=== PATIENT | female | born 1960 | race Caucasian/White ===

== ENCOUNTER 2016-06-01 08:16 | Day surgery (SDC) | payer BC ==
--- NOTE | ~2016-06-01 | EGD ---
EGD REPORT [facility] [address] [address] NAME: VERENICE FARFAN : 56 STATUS : REG [facility]#: [id number] AGE: 55 ADM/REG DATE : 06/01/16 MR#: [id number] REPORT SERV DATE: 06/01/16 DICTATED BY: SARKIS SHEPPARD DATE: 06/01/16 REPORT STATUS : Draft TRANSCRIBED BY: [employer] DATE: 06/01/16 Endoscopy Center Patient Name: Verenice Farfan Date of : 1960 Attending MD: SARKIS SHEPPARD, Procedure Date No Time: 06/01/2016 Procedure: Upper GI endoscopy Indications: For therapy of pyloric stenosis Referring MD: FAITH SERNA Medicines: Monitored Anesthesia Care Complications: No immediate complications. Estimated blood loss: None. Procedure: Pre-Anesthesia Assessment: - ASA Grade Assessment: III - A patient with severe systemic disease. After obtaining informed consent, the endoscope was passed under direct vision. Throughout the procedure, the patient's blood pressure, pulse, and oxygen saturations were monitored continuously. The GIF [id number] was introduced through the mouth, and advanced to the second part of duodenum. The upper GI endoscopy was accomplished without difficulty. The patient tolerated the procedure well. Findings: The esophagus was normal. A benign-appearing, intrinsic severe stenosis was found at the pylorus. This was traversed only after dilatation. A TTS dilator was passed through the scope. Dilation with an 8-9-10 mm pyloric balloon dilator was performed. A TTS dilator was passed through the scope. Dilation with a 10-11-12 mm pyloric balloon dilator was performed. One non-bleeding cratered gastric ulcer was found at the pylorus. The lesion was 15 mm in largest dimension. One non-bleeding cratered gastric ulcer with no stigmata of bleeding was found in the gastric antrum. The lesion was 30 mm in largest dimension. Biopsies were taken with a cold forceps for histology. Verification of patient identification for the specimen was done. A small amount of food (residue) was found in the gastric body. The cardia and gastric fundus were normal on retroflexion. The examined duodenum was normal. Impression: - Normal esophagus. - Gastric stenosis was found at the pylorus. Dilated. - Gastric ulcer with clean base. - Gastric ulcer with clean base. Biopsied. - A small amount of food (residue) in the stomach. EGD REPORT [address] [address] NAME: VERENICE FARFAN : [birth year] STATUS : REG [facility] PAT#: [id number] AGE: 55 ADM/REG DATE : 06/01/16 MR#: [id number] REPORT SERV DATE: 06/01/16 DICTATED BY: SARKIS SHEPPARD DATE: 06/01/16 REPORT STATUS : Draft TRANSCRIBED BY: [employer] DATE: 06/01/16 - Normal examined duodenum. Recommendation: - Return to previous diet. - Continue present medications. - Await pathology results. - Return to GI clinic in 3 weeks. Procedure Code(s): --- Professional --- 11145, Esophagogastroduodenoscopy, flexible, transoral; with dilation of gastric/duodenal stricture(s) (eg, balloon, bougie) 68563, Esophagogastroduodenoscopy, flexible, transoral; with biopsy, single or multiple Diagnosis Code(s): --- Professional --- K31.1, Adult hypertrophic pyloric stenosis K25.9, Gastric ulcer, unspecified as acute or chronic, without hemorrhage or perforation CPT copyright 2013 [employer]. All rights reserved. The codes documented in this report are preliminary and upon medical billing coder review may be revised to meet current compliance requirements. SARKIS SILVER, 06/01/2016 10:24 AM Number of Addenda: 0 Note Initiated On: 06/01/2016 9:53 AM Scope Withdrawal Time 0 hours 0 minutes 0 seconds [address] [place] [address]
[~2016-06-01 08:16] MED LIST: ALLEGRA180 PO; CLARIT10 PO; CYMBALTA60 PO; ESTRACE1 MG PO; ESTRATEST PO; EXCEDRIN EXTRA1 EACH PO; FLONASE NAS; ISENTRESS400 MG PO; NASONEX NAS; NEXIUM20 M1 PO; NEXIUM40 PO; NORCO1 TA2 PO; PR25 PO; PR25R PR; ROXICODONE15 MG PO; SINGULAIR1 PO; TRUVADA PO; ZANTAC150 MG PO
[2016-10-16] MEDS ORDERED: T PO (18:31)
[2016-10-16] MEDS ORDERED: ESTRATESHS PO (18:35)
== END 2016-06-01 23:59 | disposition home or self-care (01) ==
LOC: DMU 08:16
PROVIDERS: Internal Medicine Gastroenterology
PROC: 0D778ZZ Dilation of Stomach, Pylorus, Via Natural or Artificial Opening Endoscopic (ICD-10-PCS; principal; 2016-06-01 09:00)
PROC: 0DB68ZX Excision of Stomach, Via Natural or Artificial Opening Endoscopic, Diagnostic (ICD-10-PCS; 2016-06-01 09:00)
DX: K29.00 Acute gastritis without bleeding (principal); K31.1 Adult hypertrophic pyloric stenosis; Z21 Asymptomatic human immunodeficiency virus [HIV] infection status; M50.30 Other cervical disc degeneration, unspecified cervical region; M48.02 Spinal stenosis, cervical region; M19.90 Unspecified osteoarthritis, unspecified site; F32.9 Major depressive disorder, single episode, unspecified; F17.210 Nicotine dependence, cigarettes, uncomplicated; Z90.710 Acquired absence of both cervix and uterus; Z88.0 Allergy status to penicillin; Z88.2 Allergy status to sulfonamides; Z79.82 Long term (current) use of aspirin; Z79.818 Long term (current) use of other agents affecting estrogen receptors and estrogen levels; Z79.51 Long term (current) use of inhaled steroids; Z79.899 Other long term (current) drug therapy; Z90.89 Acquired absence of other organs; Z90.49 Acquired absence of other specified parts of digestive tract; Z98.890 Other specified postprocedural states; Z87.442 Personal history of urinary calculi; Z98.51 Tubal ligation status
CPT/HCPCS: 88305; 88342; C1726